=== PATIENT | male | born 1990 | race Asian ===

== ENCOUNTER 2017-09-14 06:18 | Day surgery (SDC) | payer OTHER ==
[~2017-09-14] VITALS: Ht 170.2 cm; Wt 67.1 kg
[2017-09-14 06:57] LABS: BASOPHILS # (AUTO) 0.1 K/uL (0.00-0.22); BASOPHILS % (AUTO) 2.1 % (0.0-2.0); EOSINOPHILS # (AUTO) 0.4 K/uL (0-0.4); EOSINOPHILS % (AUTO) 6.5 % (0.0-4.0); HEMATOCRIT 45.6 % (36-52); HEMOGLOBIN 15.2 g/dL (12.0-18.0); LYMPHOCYTES # (AUTO) 1.7 K/uL (2.0-11.5); LYMPHOCYTES % (AUTO) 25.1 % (20.5-51.1); MEAN CORPUSCULAR HEMOGLOBIN 26 pg (27-31); MEAN CORPUSCULAR HGB CONC 33 g/dL (33-37); MEAN CORPUSCULAR VOLUME 77 fL (80-94); MONOCYTES # (AUTO) 0.6 K/uL (0.8-1.0); MONOCYTES % (AUTO) 8.5 % (1.7-9.3); NEUTROPHILS # (AUTO) 3.9 K/uL (1.8-7.7); NEUTROPHILS % (AUTO) 57.8 % (42.2-75.2); PLATELET COUNT (AUTO) 205 K/uL (140-450); RED CELL DISTRIBUTION WIDTH 11.6 % (11.6-13.7); WHITE BLOOD COUNT (AUTO) 6.7 K/uL (4.8-10.8)
[2017-09-14 07:19] LABS: PROTHROMBIN TIME 9.4 secs (10.8-13.4)
[2017-09-14] MEDS ORDERED: LIDOCAINE 2% 1000 MG/50 ML VIAL INJ ONE (07:24)
[2017-09-14 07:49] LABS: ALBUMIN 4.1 g/dL (3.4-5.0); BILIRUBIN,DIRECT 0.1 mg/dL (0.0-0.3); TOTAL BILIRUBIN 0.4 mg/dL (0.0-1.0)
== END 2017-09-14 09:10 | disposition home or self-care (01) ==
LOC: MDS 06:18 → MMU 06:22 → MDS 09:10
PROVIDERS: ATTEND Internal Medicine Gastroenterology
DX: R74.8 Abnormal levels of other serum enzymes (principal); K76.0 Fatty (change of) liver, not elsewhere classified; Z72.89 Other problems related to lifestyle; Z87.891 Personal history of nicotine dependence
CPT/HCPCS: 36415; 47000; 76942; 80076; 85025; 85610; 85730; J2001; Q0092

== ENCOUNTER 2022-06-04 05:27 | Emergency (ER) | payer OTHER ==
[~2022-06-04] VITALS: Ht 170.2 cm; Wt 67.1 kg
[2022-06-04 05:31] VITALS: BP 133/83
--- NOTE | 2022-06-04 05:35 | NUR ---
Dr. Trinidad examining patient.
[2022-06-04 05:37] VITALS: BP 133/83
[2022-06-04] MEDS ORDERED: IBUP-2213 PO (07:14)
--- NOTE | 2022-06-04 07:29 | NUR ---
Patient discharged with v/s stable. Written and verbal after care instructions ABOUT CONTUSION given and explained. Patient alert, oriented and verbalized understanding of instructions. Ambulatory with steady gait. All questions addressed prior to discharge. ID band removed. Patient advised to follow up with PMD. Rx of IBUPROFEN given. Patient educated on indication of medication including possible reaction and side effects. Opportunity to ask questions provided and answered.
== END 2022-06-04 07:29 | disposition home or self-care (01) ==
LOC: MED 05:27 → EEVIPCON 05:27 → MED 07:29
DX: S70.12XA Contusion of left thigh, initial encounter (principal); X58.XXXA Exposure to other specified factors, initial encounter; Y93.89 Activity, other specified; Y92.89 Other specified places as the place of occurrence of the external cause; Y99.8 Other external cause status
CPT/HCPCS: 73590; 99283

== ENCOUNTER → 2022-07-15 05:35 | Emergency (ER) | payer OTHER ==
[~2022-07-15 05:35] MED LIST: IBUP-2213 PO
--- NOTE | 2022-07-15 05:42 | NUR ---
Edmund de los santos in [facility] - 07/15/22 at [address] Trinidad examining patient.
== END | disposition left against medical advice (07) ==
LOC: MED 05:35
DX: M25.519 Pain in unspecified shoulder (principal); Z53.21 Procedure and treatment not carried out due to patient leaving prior to being seen by health care provider

== ENCOUNTER 2022-09-08 05:37 | Outpatient (CLI) | payer OTHER ==
[2022-09-08 06:13] LABS: BASOPHILS % (AUTO) 0.5 % (0.0-2.0); EOSINOPHILS # (AUTO) 0.1 K/uL (0-0.4); EOSINOPHILS % (AUTO) 1.9 % (0.0-4.0); HEMATOCRIT 44.7 % (36-52); HEMOGLOBIN 14.8 g/dL (12.0-18.0); LYMPHOCYTES # (AUTO) 2.1 K/uL (2.0-11.5); LYMPHOCYTES % (AUTO) 33.1 % (20.5-51.1); MEAN CORPUSCULAR HEMOGLOBIN 26 pg (27-31); MEAN CORPUSCULAR HGB CONC 33 g/dL (33-37); MEAN CORPUSCULAR VOLUME 78.5 fL (80-94); MONOCYTES # (AUTO) 0.4 K/uL (0.8-1.0); MONOCYTES % (AUTO) 7.1 % (1.7-9.3); NEUTROPHILS # (AUTO) 3.6 K/uL (1.8-7.7); NEUTROPHILS % (AUTO) 57.4 % (42.2-75.2); PLATELET COUNT (AUTO) 228 K/uL (140-450); RED BLOOD CELL COUNT(AUTO) 5.69 MIL/uL (4.20-6.10); RED CELL DISTRIBUTION WIDTH 13.3 % (11.6-13.7); WHITE BLOOD COUNT (AUTO) 6.3 K/uL (4.8-10.8)
[2022-09-08 06:46] LABS: ALBUMIN 4.8 g/dL (3.4-5.0); ANION GAP 16.8 (8-16); CARBON DIOXIDE 27.5 mmol/L (21-32); CREATININE 1.5 mg/dL (0.6-1.3); POTASSIUM 4.3 mmol/L (3.5-5.1); TOTAL BILIRUBIN 0.6 mg/dL (0.0-1.0); URIC ACID 5.1 mg/dL (2.6-7.2)
== END 2022-09-08 17:25 | disposition home or self-care (01) ==
LOC: MLB 05:37
PROVIDERS: ATTEND Podiatrist Foot & Ankle Surgery
DX: E72.11 Homocystinuria (principal); R68.89 Other general symptoms and signs; B35.1 Tinea unguium; M06.89 Other specified rheumatoid arthritis, multiple sites
CPT/HCPCS: 36415; 80053; 84550; 85025; 85651; 86140